=== PATIENT | female | born 1960 | race Caucasian/White ===

== ENCOUNTER 2016-09-13 17:21 | Emergency (ER) | payer MEDICARE, MEDICAID ==
[~2016-09-13] VITALS: Ht 160 cm; Wt 66.0 kg
[~2016-09-13 17:21] MED LIST: CIPR500T4 PO; METR-1 PO; MOBI15TA PO
[2016-09-13 17:23] VITALS: BP 111/81; PULSE 94; RESP 18; TEMP 97.8; O2SAT 97
[2016-09-13] MEDS ORDERED: MS C15TA2 PO (17:41)
[2016-09-13] MEDS ORDERED: MORP1TAB24 PO (17:41)
[2016-09-13] MEDS ORDERED: LYRI75CA PO (17:41)
[2016-09-13] MEDS ORDERED: CYCL1TAB29 PO (17:41)
--- NOTE | 2016-09-13 17:41 | PD ---
HPI Chief Complaint: Musculoskeletal Complaint Time Seen by Provider: 17:36 Travel History International Travel<30 days: No Contact w/Intl Traveler<30days: No Traveled to known affect area: No History of Present Illness HPI Patient comes in complaining of right foot pain ongoing for a week. Patient states her brothers pitbull stepped on her foot causing pain. Patient reports having pain over her distal first metatarsal radiates laterally. Describes pain as a stabbing/dull ache. Patient states she's been taking her morphine along with Tylenol and ibuprofen with minimal pain relief. Pain is worse with standing. Denies any new numbness or tingling or other known injury. PFSH Past Medical History Anemia: Yes Depression: Yes Heart Rhythm Problems: No Cardiac Catheterization: No Cardiovascular Problems: No High Cholesterol: Yes (DIET) Congestive Heart Failure: No Diabetes: No Diminished Hearing: Yes (RT EAR) Fibromyalgia: Yes Hypertension: No Musculoskeletal: Yes (NERVE DAMAGE ?L4/5 CAUSED A NEUROPATHY. C5,6,7 MYLOPATHY ) Neurologic: Yes (SPINAL STENOSIS) Integumentary: Yes (SHINGLES TO LEFT SHOULDER) Myocardial Infarction: No Menopausal: Yes : 3 Para: 1 : 2 Ovarian Cysts: Yes Past Surgical History Coronary Artery Bypass Graft: No Social History Alcohol Use: No Tobacco Use: Yes (1 PPD) Substance Use: No Allergies-Medications (Allergen,Severity, Reaction): Coded Allergies: Penicillin (Verified Allergy, Severe, Anaphylaxis, 09/13/16) Reported Meds & Prescriptions Reported Meds & Active Scripts Active Reported Morphine IR (Morphine Sulfate) 15 Mg Tab 15 Mg PO TID Flexeril (Cyclobenzaprine HCl) 10 Mg Tab 10 Mg PO BID Lyrica (Pregabalin) 75 Mg Cap 75 Mg PO TID Morphine ER (Morphine Sulfate) 15 Mg Tab 15 Mg PO BID Review of Systems Except as stated in HPI: all other systems reviewed are Neg Physical Exam Narrative GENERAL: Well-developed, well nourished, in no acute distress, and non-ill appearing. SKIN: Focused skin assessment warm and dry. HEAD: Atraumatic. Normocephalic. EYES: Pupils equal and round. EOMI. No scleral icterus. No injection or drainage. ENT: No nasal bleeding or discharge. Mucous membranes pink and moist. NECK: Trachea midline. Supple. No nuclear rigidity. CARDIOVASCULAR: Dorsal pulses 2+, nontender, and equal bilaterally. Capillary refill less than 2 seconds. RESPIRATORY: No accessory muscle use. No respiratory distress. MUSCULOSKELETAL: No obvious deformities. No clubbing. No cyanosis. No edema. Full range of motion. Capillary refill less than 2 seconds distal to injury and equal BL. Sensation equal BL 1st web space. FROM of toes distal to injury and equal BL. NV intact distal to injury and equal BL. Dorsal pulses equal BL. Patient reports tenderness to palpation over the distal first metatarsal. NEUROLOGICAL: Awake and alert. No obvious cranial nerve deficits. Motor grossly within normal limits. Normal speech. PSYCHIATRIC: Appropriate mood and affect; insight and judgment normal. Data Data Last Documented VS Vital Signs Date Time Temp Pulse Resp B/P Pulse Ox O2 Delivery O2 Flow Rate FiO2 09/13/16 17:23 97.8 94 18 111/81 97 Orders Foot, Complete ([id number]) (09/13/16 ) Ice/Cold Pack (09/13/16 17:34) Splint Or Brace Apply/Monitor (09/13/16 17:41) Ketorolac Inj (Toradol Inj) (09/13/16 17:45) MDM Medical Decision Making Medical Screen Exam Complete: Yes Emergency Medical Condition: Yes Differential Diagnosis Fracture, sprain, contusion, other Narrative Course The patient appears to have suffered a contusion of the foot. There is no clinical evidence to suspect bony injury by exam. Radiographic examination revealed no fracture seen at this time. The patient has full range of motion on active and passive motions. There is no significant edema. There is no proximal or distal joint effusion. The distal extremity appears neurovascularly intact, without evidence of neurovascular injury nor compartment syndrome. Tendon exam also was intact. The patient was discharged and given warnings for vascular compromise. The patient is to follow up with their regular physician or adult school counselor. The patient agrees with plan. Patient in no obvious distress upon re-evaluation. All pertinent Radiology result(s) discussed with patient. Any questions/concerns in reference to patient diagnosis/condition discussed and clarified prior to patient's discharge. Reinforced sheer importance of close follow up with patient's primary physician or primary care clinic and/or adult school counselor. Instructed patient to return to ED immediately, if symptoms return/worsen. Pt showed understanding of above instructions. Further instructions and recommendations were detailed in discharge paperwork. Pt ambulated without difficulty out of ED at discharge. Diagnosis Primary Impression: Contusion of right foot, initial encounter Referrals: Fredis Nicholas DPM Patient Instructions: Contusion in Adults (ED), General Instructions, Splint Care (GEN) Additional Instructions: Follow-up with your primary care physician and/or adult school counselor in 2-3 days for reevaluation. Wear postop shoe as needed for comfort. Apply ice to affected area 20 minutes per hour as needed for pain. Return to the emergency department if symptoms get worse. Disposition: 01 DISCHARGE HOME Condition: Stable Won Olivia Sep 13, 2016 17:41
[2016-09-13] MEDS ORDERED: MSIR15 PO (17:43)
[2016-09-13] MEDS ORDERED: KETOROLAC TROMETHAMINE 60 MG/2 ML (IM) VIAL IM ONE (17:45)
--- NOTE | 2016-09-13 18:15 | RADHPO ---
EXAM DATE/TIME: 09/13/2016 17:41 [facility] COMPARISON: No previous studies available for comparison. INDICATIONS : Dog stepped on right foot MEDICAL HISTORY : None. SURGICAL HISTORY : None. ENCOUNTER: Initial ACUITY: 1 week PAIN SCORE: 10/10 LOCATION: Right foot FINDINGS: Three view examination of the right foot demonstrates no soft tissue swelling, dislocation, or fractu re. The tarsal bones appear intact. The interphalangeal and metatarsophalangeal joints are intact. Small retrocalcaneal spur. No radiopaque foreign bodies. Bony mineralization is normal. CONCLUSION: No evidence of recent bony injury. Cal Hess MD on September 13, 2016 at 18:13 Board Certified Radiologist. This report was verified electronically.
== END 2016-09-13 18:28 | disposition home or self-care (01) ==
LOC: PHEFT 17:21
DX: S90.31XA Contusion of right foot, initial encounter (principal); W54.8XXA Other contact with dog, initial encounter; Y93.9 Activity, unspecified; Y92.9 Unspecified place or not applicable; Y99.9 Unspecified external cause status
CPT/HCPCS: 73630; 96372; 99283; J1885; L3260

== ENCOUNTER 2017-07-20 16:47 | Emergency (ER) | payer MEDICARE, MEDICAID ==
[~2017-07-20] VITALS: Ht 160 cm; Wt 64.4 kg
[~2017-07-20 16:47] MED LIST changes: -CIPR500T4 PO; +CYCL10TA PO; +HYDR-3533 PO; +LYRI75CA PO; -METR-1 PO; -MOBI15TA PO; +MORP1TAB24 PO; +MSIR15 PO; +PERC10TA27 PO; +PREG75 PO; +SOMA350T PO
[2017-07-20 16:55] VITALS: BP 140/66; PULSE 96; RESP 14; TEMP 98.5; O2SAT 97
[2017-07-20] MEDS ORDERED: ROBA500T PO (17:54)
[2017-07-20] MEDS ORDERED: OXYC-395 PO (17:54)
[2017-07-20] MEDS ORDERED: LIDOCAINE 2%/EPINEPHrine 1:100,000 30ML MDV INFIL ONE (18:15)
[2017-07-20] MEDS ORDERED: BUPIVACAINE HCL PF 0.5% 10 ML VIAL NERV BLOCK ONE (18:15)
[2017-07-20] MEDS ORDERED: CLIN300C5 PO (18:16)
--- NOTE | 2017-07-20 18:29 | PD ---
HPI . Toothache Chief Complaint: Oral / Dental Pain or Problem Time Seen by Provider: 17:49 Travel History International Travel<30 days: No Contact w/Intl Traveler<30days: No Traveled to known affect area: No History of Present Illness HPI This patient presents with a toothache. Onset was about 2 weeks ago. She saw her primary care provider who placed her on Zithromax. She states she completed the Zithromax today and still has the tooth pain. She states that she went to her pain doctor for her routine pain shot and that they would not give it to her because of the dental pain. She has not yet seen a dentist. She does not yet have an appointment with a dentist. She is requesting that I do a dental block. PFSH Past Medical History Anemia: Yes Depression: Yes Heart Rhythm Problems: No Cardiac Catheterization: No Cardiovascular Problems: No High Cholesterol: Yes (DIET) Congestive Heart Failure: No Diabetes: No Diminished Hearing: Yes (RT EAR) Fibromyalgia: Yes Hypertension: No Musculoskeletal: Yes (NERVE DAMAGE ?L4/5 CAUSED A NEUROPATHY. C5,6,7 MYLOPATHY ) Neurologic: Yes (SPINAL STENOSIS, SPINAL CYSTS) Integumentary: Yes (SHINGLES TO LEFT SHOULDER) Myocardial Infarction: No Tetanus Vaccination: < 5 Years Influenza Vaccination: No ?: Not Menopausal: Yes : 3 Para: 1 : 2 Ovarian Cysts: Yes Past Surgical History Coronary Artery Bypass Graft: No Social History Alcohol Use: No Tobacco Use: Yes (1 PPD) Substance Use: No Allergies-Medications (Allergen,Severity, Reaction): Coded Allergies: penicillin G (Unverified Allergy, Severe, Anaphylaxis, 07/20/17) Reported Meds & Prescriptions Reported Meds & Active Scripts Active Reported Robaxin (Methocarbamol) 500 Mg Tab 500 Mg PO TID Oxycodone (Oxycodone HCl) 10 Mg Tab 10 Mg PO Q8HR Morphine IR (Morphine Sulfate) 15 Mg Tab 15 Mg PO TID Lyrica (Pregabalin) 75 Mg Cap 75 Mg PO TID Review of Systems Except as stated in HPI: all other systems reviewed are Neg General / Constitutional: No: Fever, Chills HENT: Positive: Dental Difficulties, Other (No facial swelling) Physical Exam Narrative GENERAL: Awake and alert and in no acute distress. SKIN: Warm and dry. HEAD: Normocephalic/atraumatic. EYES: Pupils are equal. Extraocular movements are intact. ENT: Poor dentition. Her left lower second bicuspid is the last tooth that she has on the left lower side. It has deep dental caries with minimal tenderness to percussion. There is no edema or erythema of the gum. There is no facial swelling. NECK: Normal range of motion. No cervical adenopathy. RESPIRATORY: Nonlabored respirations. MUSCULOSKELETAL: Atraumatic. NEUROLOGICAL: Nonfocal. PSYCHIATRIC: Appropriate mood and affect. Data Data Last Documented VS Vital Signs Date Time Temp Pulse Resp B/P (MAP) Pulse Ox O2 Delivery O2 Flow Rate FiO2 07/20/17 16:55 98.5 96 14 140/66 (90) 97 Orders Orders Lidocai-Epi 2%-1:100,000 Inj (Xylocaine- (07/20/17 18:15) Bupivacaine Pf 0.5% Inj (Marcaine Pf 0.5 (07/20/17 18:15) MDM Medical Decision Making Medical Screen Exam Complete: Yes Emergency Medical Condition: Yes Differential Diagnosis Differential diagnosis of a toothache includes but is not limited to dental caries, dental abscess, gingivitis, drug-seeking behavior. Narrative Course This patient presents with a toothache. My plan is to discharge her with a prescription for clindamycin. She has requested a dental block. I will block her tooth with a combination of lidocaine and Marcaine. Procedures Procedure Narrative DENTAL BLOCK The tooth was blocked using 2 cc of 2% lidocaine with epi and 3 cc of 0.5% Marcaine. The patient tolerated procedure well with good anesthesia. Diagnosis Primary Impression: Toothache Patient Instructions: General Instructions, Toothache (ED) Med/Other Pt SpecificInfo: Prescription(s) given Scripts Clindamycin (Clindamycin) 300 Mg Cap 600 MG PO Q8H for Infection, #30 CAP 0 Refills Prov: Natasha Roy MD 07/20/17 Disposition: 01 DISCHARGE HOME Condition: Stable Natasha Roy MD Jul 20, 2017 18:29
[2017-07-20] MEDS ORDERED: LIDOCAINE 2%/EPINEPHrine 1:100,000 20ML MDV INFIL ONE (18:30)
== END 2017-07-20 18:30 | disposition home or self-care (01) ==
LOC: PHEFT 16:47
DX: K08.89 Other specified disorders of teeth and supporting structures (principal); M79.7 Fibromyalgia; F17.200 Nicotine dependence, unspecified, uncomplicated
CPT/HCPCS: 64400